=== PATIENT | female | born 1995 | race Hispanic/Latino ===

== ENCOUNTER 2016-12-12 20:07 | Inpatient (IN) ==
[2016-12-12 21:06] LABS: URINE SOURCE VOIDED
[2016-12-12 21:13] LABS: BILIRUBIN URINE NEGATIVE (NEGATIVE); BLOOD URINE NEGATIVE (NEGATIVE); CLARITY CLEAR (CLEAR); COLOR YELLOW; GLUCOSE URINE NEGATIVE (NEGATIVE); LEUKOCYTES URINE NEGATIVE (NEGATIVE); NITRITE URINE NEGATIVE (NEGATIVE); PROTEIN URINE NEGATIVE (NEGATIVE); UROBILINOGEN URINE NORMAL
[2016-12-12 21:22] LABS: UR AMPHETAMINES QUAL NONE DETECTED (NONE DETECT); UR BARBITUATES QUAL NONE DETECTED (NONE DETECT); UR BENZODIAZEPIN QUAL NONE DETECTED (NONE DETECT); UR CANNABINOIDS QUAL NONE DETECTED (NONE DETECT); UR COCAINE QUAL NONE DETECTED (NONE DETECT); UR MDMA QUAL NONE DETECTED (NONE DETECT); UR METHADONE QUAL NONE DETECTED (NONE DETECT); UR METHAMPHETAMINE QUAL NONE DETECTED (NONE DETECT); UR OPIATES QUAL NONE DETECTED (NONE DETECT); UR OXYCODONE QUAL NONE DETECTED (NONE DETECT); UR PCP QUAL NONE DETECTED (NONE DETECT); UR TCA QUAL NONE DETECTED (NONE DETECT)
[2016-12-12] MEDS ORDERED: ZOFRAN IV PRN (21:22)
[2016-12-12] MEDS ORDERED: TYLENOL PO PRN (21:22)
[2016-12-12] MEDS ORDERED: KEFZOL 1 GM/D5W 1 GM/50 ML IVPB IV PRN (21:22)
[2016-12-12] MEDS ORDERED: PEPCID PO PRN (21:22)
[2016-12-12] MEDS ORDERED: REGLAN PO ONE (21:22)
[2016-12-12] MEDS ORDERED: PEPCID PO ONE (21:22)
[2016-12-12] MEDS ORDERED: LR 1,000 ML IV SCH (21:22)
[2016-12-12] MEDS ORDERED: PEPCID IV PRN (21:22)
[2016-12-12] MEDS ORDERED: PHENERGAN IV PRN (21:25)
[2016-12-12] MEDS ORDERED: SODIUM CHLORIDE 0.9% INJ PRN (21:25)
[2016-12-12] MEDS ORDERED: SODIUM CHLORIDE 0.9% INJ SCH (21:30)
[2016-12-12] MEDS: STADOL IV PRN (22:29)
[2016-12-12 23:39] LABS: MANUAL DIFF NEEDED? NO
[2016-12-12 23:47] LABS: BASO% 0.2 % (0.0-0.8); EOS# 0.04 X1000 (0.0-0.7); EOS% 0.3 % (0.0-10.0); HEMATOCRIT 42.2 % (37.0-47.0); HEMOGLOBIN 14.2 g/dL (12.0-16.0); IMM GRAN# 0.15 X1000 (0.0-0.04); LYMPH# 2.61 X1000 (1.2-3.4); LYMPH% 17.9 % (20.5-51.1); MCH 30.1 PG (27-31); MCHC 33.6 g/dL (33-37); MCV 89.6 FL (81-99); MONO# 0.73 X1000 (0.11-0.59); MPV 9.7 FL (7.4-10.4); NEUT% 75.6 % (42.2-75.2); PLT 238 X1000 (130-400); RBC 4.71 XMIL (4.2-5.4)
[2016-12-12] MEDS ORDERED: MINERAL OIL TOP ONE (23:58)
[2016-12-12] MEDS ORDERED: XYLOCAINE-MPF 1% INJ ONE (23:58)
[2016-12-12] MEDS ORDERED: PITOCIN 30 UNITS/LR 30 UNITS/500 ML IV.SOLN IV SCH (23:58)
[2016-12-13] MEDS ORDERED: XYLOCAINE-MPF 1% INJ ONE (01:00)
[2016-12-13] MEDS: STADOL IV PRN (01:55)
[2016-12-13] MEDS ORDERED: NORCO-10 PO PRN (02:16)
[2016-12-13] MEDS ORDERED: NORCO-5 PO PRN (02:16)
[2016-12-13] MEDS ORDERED: M-M-R II VACCINE SUBQ ONE (02:16)
[2016-12-13] MEDS ORDERED: BENADRYL PO PRN (02:16)
[2016-12-13] MEDS ORDERED: CYTOTEC PO PRN (02:16)
[2016-12-13] MEDS ORDERED: PITOCIN IM PRN (02:16)
[2016-12-13] MEDS ORDERED: PERI MEDS (DERMOPLAST/NUPERCAINAL/TUCKS) MISC PRN (02:16)
[2016-12-13] MEDS ORDERED: XYLOCAINE-MPF 1% INJ PRN (02:16)
[2016-12-13] MEDS ORDERED: HYDROXYZINE PO PRN (02:16)
[2016-12-13] MEDS ORDERED: HYDROXYZINE IM PRN (02:16)
[2016-12-13] MEDS ORDERED: AMBIEN PO PRN (02:16)
[2016-12-13] MEDS ORDERED: MINERAL OIL PO PRN (02:16)
[2016-12-13] MEDS ORDERED: BOOSTRIX VACCINE IM ONE (02:16)
[2016-12-13] MEDS ORDERED: PITOCIN 30 UNITS/LR 30 UNITS/500 ML IV.SOLN IV ONE (02:16)
[2016-12-13] MEDS ORDERED: BENADRYL IV PRN (02:16)
[2016-12-13] MEDS ORDERED: PITOCIN 20 UNITS/LR 20 UNITS/1,000 ML IV.SOLN IV SCH (02:16)
[2016-12-13] MEDS ORDERED: PITOCIN 30 UNITS/LR 30 UNITS/500 ML IV.SOLN IV SCH (06:00)
--- NOTE | 2016-12-13 06:48 | OPERATIVE NOTE ---
PROCEDURE DATE: 12/13/2016 PRE-DELIVERY DIAGNOSIS: Intrauterine at 39 weeks, active labor. POST-DELIVERY DIAGNOSIS: Intrauterine at 39 weeks, active labor. PROCEDURES: Vaginal delivery. PHYSICIAN: Stew Mukherjee MD ANESTHESIA: IV sedation. FINDINGS: Viable female infant. Do not have weight. Has 9 and 10 Apgars. Cord was 3 vessels. Placenta was spontaneous, intact. There was primary perineal laceration. COUNTS: All counts were correct. ESTIMATED BLOOD LOSS: 100 mL. PROCEDURE: Ms. Leiva is a 21-year-old 3, para 1, at 39 weeks today, who stated she began jack yesterday afternoon and progressed to the point where she presents to labor and delivery. She was found to be in active labor. She did not desire an epidural, so she was given IV pain sedation and progressed without distress or dystocia. Once becoming complete, the bed was broken down and she was prepped and draped. Then with the next couple pushes she pushes well and delivered a viable female infant, occiput anterior, over a primary perineal laceration. Once head delivered, shoulders and rest of the body delivered without difficulty and was placed on mother's abdomen. Cord was clamped and cut and care of was taken over by nursery personnel. Cord blood was obtained and it was noted to be a 3-vessel cord. Then gentle traction on the cord resulted in delivery of an intact placenta. It was inspected and discarded. Then inspection of the vagina and perineum revealed that a primary midline skin lack, so this was repaired with a 3-0 chromic after infiltrating the area with 1% lidocaine. Once this was done, vaginal sweep did not reveal any foreign material or any clots. Count was correct with 10 Ray- Brian's, 1 Vag-Pack, 2 needles, and expect routine . ESTIMATED BLOOD LOSS: 100 mL. cc: Stew Mukherjee MD
[2016-12-13] MEDS: PRECARE PO SCH (08:58)
[2016-12-13] MEDS: MOTRIN PO PRN (16:35)
[2016-12-13] MEDS: PERICOLACE PO SCH (20:26)
[2016-12-14] MEDS: MOTRIN PO PRN ×2 (03:51→19:27)
[2016-12-14 05:56] LABS: MANUAL DIFF NEEDED? NO
[2016-12-14 06:12] LABS: BASO% 0.4 % (0.0-0.8); EOS# 0.06 X1000 (0.0-0.7); EOS% 0.5 % (0.0-10.0); HEMATOCRIT 37.7 % (37.0-47.0); HEMOGLOBIN 12.7 g/dL (12.0-16.0); IMM GRAN# 0.15 X1000 (0.0-0.04); IMM GRAN% 1.1 % (0.0-0.5); LYMPH# 2.45 X1000 (1.2-3.4); LYMPH% 18.5 % (20.5-51.1); MCH 30.5 PG (27-31); MCHC 33.7 g/dL (33-37); MCV 90.6 FL (81-99); MONO% 6.8 % (1.7-9.3); MPV 9.6 FL (7.4-10.4); NEUT% 72.7 % (42.2-75.2); PLT 212 X1000 (130-400); RBC 4.16 XMIL (4.2-5.4)
[2016-12-14] MEDS: PRECARE PO SCH (08:48)
[2016-12-14] MEDS: PERICOLACE PO SCH ×2 (19:27→21:00)
--- NOTE | 2016-12-15 08:22 | PROGRESS NOTE ---
DATE: 12/14/2016 SUBJECTIVE: day 1. OBJECTIVE: Vital signs are stable. Afebrile. No complaints. Physical exam is within normal limits. ASSESSMENT: day 1. PLAN: Routine care. Discharge in the morning. cc: Stew Mukherjee MD
[2016-12-15] MEDS: PRECARE PO SCH (09:05)
[2016-12-15 12:12] VITALS: BP 111/69
== END 2016-12-15 12:00 | disposition home or self-care (01) ==
LOC: P.NBC 20:07 → P.LD 20:12 → P.WC 12-13 14:47
PROVIDERS: ADMIT Obstetrics & Gynecology; ATTEND Obstetrics & Gynecology